=== PATIENT | female | born 1960 | race African-American/Black ===

== ENCOUNTER 2023-01-31 17:47 | Emergency (ER) | payer MEDICAID ==
[~2023-01-31] VITALS: Ht 170.2 cm; Wt 100.0 kg
[2023-01-31] MEDS ORDERED: HYDROcodone-ACET 10/325MG TAB PO ONE (18:45)
[2023-01-31] MEDS ORDERED: IBUP600T27 PO (21:30)
[2023-01-31] MEDS ORDERED: HYDR-4902 PO (21:30)
[2023-01-31 23:00] VITALS: BP 144/79
== END 2023-01-31 23:18 | disposition home or self-care (01) ==
LOC: ER 17:47
DX: N63.20 Unspecified lump in the left breast, unspecified quadrant (principal); N64.4 Mastodynia; E66.01 Morbid (severe) obesity due to excess calories; Z68.34 Body mass index [BMI] 34.0-34.9, adult
CPT/HCPCS: 76642